=== PATIENT | female | born 1950 | race Caucasian/White ===

== ENCOUNTER 2017-01-12 05:54 | Day surgery (SDC) | payer OTHER ==
[~2017-01-12] VITALS: Ht 167.6 cm; Wt 91.8 kg
[~2017-01-12 05:54] MED LIST: ALBU18HF INH; ALBU8.5H2 INHALATION; ATEN25TA PO; CETI10CA PO; CHOL200047 PO; CITA10TA9 PO; LEVO25CA2 PO; MULT-1018 PO; NPR500T PO; OMEP20TA24 PO; PRAV40TA PO; TRAM50TA2 PO; VITA400C66 PO
[2017-01-12] MEDS ORDERED: Propofol 10,000 mCg/mL 20 mL Inj ONE ×2 (05:55)
[2017-01-12] MEDS ORDERED: Lidocaine 1%-Epi 1:100,000 10 mL Inj ONE (05:55)
[2017-01-12] MEDS ORDERED: CeFAZolin Inj 2 GM in IV Premix 1 EACH IV ONE (06:00)
[2017-01-12] MEDS: Lactated Ringer's 1,000 ML IV SCH ×2 (06:24→07:28)
[2017-01-12] MEDS ORDERED: BUPR75TA10 PO (06:32)
[2017-01-12 06:37] VITALS: BP 123/74; PULSE 68; RESP 17; O2SAT 96
[2017-01-12] MEDS ORDERED: Lidocaine PF 1% 30 mL Inj NERVEBLOCK ONE (07:34)
[2017-01-12] MEDS ORDERED: Lidocaine 2%-Epi 1:100,000 20 mL Inj NERVEBLOCK ONE (07:34)
--- NOTE | 2017-01-12 07:57 | PCM.HPANE ---
Patient Data Surgeon Admitting Provider: Attending Provider:Kika Ayon DPM Primary Care Physician:Trevor Other Provider:Conner Christian Anesthesia Reason for Visit Right Hallus Valgus / Bunion Ht/WT & BMI Height (Feet): 5 Height (Inches): 6 Weight (Kilograms): 91.8 Body Mass Index 32.00 Allergies Coded Allergies: lansoprazole (Verified Allergy, Severe, hives, 08/24/16) Past Anesthesia History Anesthesia History: Denies:: Anesthesia Reactions, Malignant Hyperthermia Diabetes History Hx Diabetes?: No Type of Diabetes: Type II Glycemic Control: Diet Controlled MRSA MRSA: No Medications Blood Thinner: Aspirin Hypertension Medication: Yes Home Meds Incl Beta Anali: Yes Date Beta Anali Taken: Jan 12, 2017 Time Beta Anali Taken: 514 Reported Medications Bupropion 75 Mg Rvwmcg90 Mg PO DAILY Ref 0 01/12/17 Cetirizine HCl (Zyrtec)10 Mg Zefafpe06 Mg PO HS PRN For Congestion #30 CAPSULE Ref 0 01/08/17 Vitamin E Acetate (Vitamin E)400 Unit Nacuxaf690 Unit PO DAILY 01/08/17 Cholecalciferol (Vitamin D3) (Vitamin D3)2,000 Unit Capsule6,000 Unit PO DAILY 01/08/17 Albuterol Sulfate (Ventolin HFA Inhaler)200 Puff/18 Gm Inhaler2 Puff INH Q4 PRN For Wheezing #1 INHALER Ref 0 01/08/17 Tramadol 50 Mg Tlbjyl27 Mg PO Q6H PRN For Pain Ref 0 01/08/17 Levothyroxine (Tirosint)25 Mcg Rgliwup89 Mcg PO DAILY 01/08/17 Multivitamin (Multi Vitamin Daily)1 Each Tablet1 Each PO DAILY 30 Days Ref 0 01/08/17 Albuterol HFA (Proair HFA)8.5 Gm Hfa.aer.ad2 Puffs INHALATION Q4H PRN For Shortness of Breath #1 INHALER 01/08/17 Omeprazole Magnesium (Prilosec Otc)20 Mg Tablet.dr20 Mg PO DAILY PRN For Indigestion #1 PKG Ref 0 01/08/17 Pravastatin 40 Mg Ifcsct66 Mg PO DAILY Ref 0 01/08/17 Naproxen 500 Mg Ulq324 Mg PO BID PRN For Pain Ref 0 01/08/17 Citalopram 10 Mg Mxpdqx22 Mg PO DAILY Ref 0 01/08/17 Atenolol 25 Mg Tlrkiy93.5 Mg PO DAILY #30 TABLET Ref 0 01/08/17 Discontinued Reported Medications Aspirin 81 Mg Xprqkh42 Mg PO DAILY Ref 0 08/24/16 Bupropion ER (Wellbutrin XL)150 Mg Tab.er.95s382 Mg PO DAILY Ref 0 08/24/16 Cetirizine HCl (Zyrtec)10 Mg Vnfzwyd87 Mg PO HS #30 CAPSULE Ref 0 08/24/16 oxyCODONE-Acetaminophen 5-325 mg 1 Each Tablet1-2 Tab PO Q6H PRN For Pain Ref 0 08/24/16 Vitamin E Acid Succinate (Vitamin E)400 Unit Oazfgu687 Unit PO DAILY 08/24/16 Cholecalciferol (Vitamin D3) (Vitamin D3)2,000 Unit Capsule6,000 Unit PO DAILY 08/24/16 Multivitamin (Multi Vitamin Daily)1 Each Tablet1 Each PO DAILY 30 Days Ref 0 08/24/16 Albuterol HFA (Proair HFA)8.5 Gm Hfa.aer.ad2 Puffs INHALATION Q4H PRN PRN #1 INHALER 08/24/16 Omeprazole 20 Mg Capsule.dr20 Mg PO DAILY Ref 0 08/24/16 Naproxen (Naprosyn)500 Mg Xzwcui949 Mg PO BID PRN For Pain Ref 0 08/24/16 Citalopram 10 Mg Vzsgns73 Mg PO DAILY 30 Days Ref 0 12/26/14 Pravastatin 10 Mg Cnkkzp06 Mg PO HS 12/26/14 Levothyroxine 25 Mcg Jfnpuy708 Mcg PO DAILY 12/26/14 Atenolol 25 Mg Kyrbmx85.5 Mg PO DAILY 12/26/14 History History of ENT Problems?: Yes HEENT History: 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) Denture Type: None Teeth Condition: Within Normal Limits Hx of Heart Problems?: Yes Cardiovascular History: Positive for:: Hypertension Denies:: Congestive Heart Failure Irregular Heartbeat Hx of Respiratory Problem?: Yes Respiratory History: Positive for:: Asthma Use of Inhalers / NEBS Denies:: COPD Emphysema Pneumonia Tuberculosis Use of C-PAP Machine Hx Neurologic Problems?: No Neurological History: Denies:: CVA Multiple Sclerosis Parkinson's Disease Seizures Hx of GI Problems?: Yes Hx of Problems?: No Genitourinary History: Denies:: Kidney Stones Urinary Tract Infection (past hx of) Female Hx: Denies:: Currently Skin History: Denies:: History Skin Disorders? Pressure Ulcers Hx Musculoskeletal Problems?: Yes Musculoskeletal History: Positive for:: Musculoskeletal Trauma (right bunion current admission problem ) Hx of Psycho/Social Problems?: Yes Psycho Social History: Positive for:: Anxiety Hx Depression Hx Surgeries?: Yes (left bunion, dental surgery) Hx Any Other Health Problems?: Yes Other History: Positive for:: Thyroid Disease Denies:: Cancer Endocrine Disease Hospitalization History Blood Transfusions: Positive for:: Blood Transfusions Denies:: Blood Transfuse Reaction Hx Diabetes: No Hx Alcohol Use: NoHx Substance Use: No (remote hx of MJ, none current) Smoking Status: Never Smoker Have You Smoked inLast 12 mo: No Stop/Bang S-Snoring: Do You Snore Loudly: No T-Tired: feel tired, fatigued: No O-Obsered: Observed not breath: No P-Blood Pressure: treated: Yes B- Body Mass Index > 35 kg/m2: No A- Age over 50: Yes N- Neck Large Circumference: No G- Gender Male: No ADAM Total Score: 2 ADAM Risk Assessment: Low Risk, <3 Yes Risk Assessment Category Category 1A: Patient has history of documented sleep apnea, and HAS NOT received any narcotic, sedative or anesthesia administration during this stay. Category 1B: Patient has history of documented sleep apnea, and HAS received any narcotic , sedative or anesthesia administration during this stay Category 2: Patient has SUSPECTED Obstructive Sleep Apnea, and HAS received any narcotic , sedative or anesthesia administration during this stay. Category 3: Patient has SUSPECTED Obstructive Sleep Apnea and HAS NOT received narcotic, sedative or anesthesia administration during this stay. Category 4: Outpatient in Procedural Areas with known sleep apnea or who screen positive for High Risk via the STOP/BANG questionnaire. Exam Exam Vital Signs Vital Signs Date Time Temp Pulse Resp B/P Pulse Ox O2 Delivery O2 Flow Rate FiO2 01/12/17 06:37 35.6 68 17 123/74 96 Room Air General Appearance: Alert, Oriented X3, Cooperative HEENT/AIRWAY: MP 2 Lungs: Clear to Auscultation Heart: Exam Unremarkable Meds/Labs/Diagnostics Admission Meds Current Medications Lactated Ringer's (Lr) 1,000 ml @ 120 mls/hr Q8H20M IV Last administered on t 06:24; Start 01/12/17 at 05:00; Stop 01/12/17 at 13:19 Plan Impression Patient chart reviewed, patient interviewed and anesthestic plan with risks, benefits, and alternatives discussed, and informed consent obtained. ASA Physical Status: ASA2 Mod Systemic Disease Anesthetic Plan: MAC Bene/Risks/Altern/Consents: Yes HP Complete Prior to Induction: Yes Nils Garrison DO Jan 12, 2017 07:27
[2017-01-12] MEDS ORDERED: Lactated Ringer's 500 ML IV PRN (07:59)
[2017-01-12] MEDS ORDERED: Lactated Ringer's 1,000 ML IV SCH (07:59)
[2017-01-12] MEDS ORDERED: fentaNYL-PF 50 mCg/mL 2 mL Inj IVPUSH PRN (08:00)
[2017-01-12] MEDS ORDERED: Dexamethasone 4 mg/mL Inj IVPUSH PRN (08:00)
[2017-01-12] MEDS ORDERED: Ondansetron 2 mg/mL 2 mL Inj IVPUSH PRN (08:00)
[2017-01-12] MEDS ORDERED: Labetalol 5 mg/mL 4 mL Inj IV PRN (08:00)
[2017-01-12] MEDS ORDERED: Phenylephrine 10,000 mCg/mL Inj IVPUSH PRN (08:00)
[2017-01-12] MEDS ORDERED: HYDROmorphone 1 mg/mL Inj IVPUSH PRN (08:00)
[2017-01-12] MEDS ORDERED: MetoCLOpramide 5 mg/mL 2 mL Inj IVPUSH PRN (08:00)
[2017-01-12] MEDS ORDERED: EPHEDrine Sulfate 50 mg/mL Inj IVPUSH PRN (08:00)
[2017-01-12] MEDS ORDERED: Atropine 0.4 mg/mL Inj IVPUSH PRN (08:00)
[2017-01-12 08:51] VITALS: BP 109/74; PULSE 83; RESP 15; O2SAT 97
[2017-01-12] MEDS ORDERED: oxyCODONE-Acetamin 5-325 mg Tablet PO PRN (08:55)
--- NOTE | 2017-01-12 09:00 | PCM.PODPO ---
Podiatry Operative Report Date of Service: Jan 12, 2017 Date of Service Jan 12, 2017 Pre Operative Diagnosis Right foot hallux valgus, bunion deformity Post Operative Diagnosis Right foot hallux valgus, bunion deformity Procedure Right bunionectomy with Buddy distal first metatarsal osteotomy Surgeon Surgeon: Kika Ayon DPM Assistants: None Indication for Procedure Pain and deformity, thick calluses interfering with ambulation. Findings 20% cartilage degeneration in 1st MTP joint. Abduction residual after osteotomy , not amenable to Todd osteotomy due to bone stock. Details of Procedure The patient was identified in the preoperative holding area. She was brought back to the operating room and placed on the operating table in supine position. The timeout protocol was completed and the patient's name and site of surgery confirmed. IV sedation was initiated and the patient's right foot anesthetized in a Colby block. The right foot was prepped and draped in usual aseptic manner. Incisional lidocaine with epinephrine was used for localized hemostasis and no tourniquet was necessary. The incision was made on the dorsomedial aspect of the first metatarsophalangeal joint. It was deepened bluntly to expose the underlying metatarsophalangeal joint capsule. The skin was undermined laterally to this intermetatarsal space. The adductor hallucis tendon was released, the proximal aspect of the fibular suspensory ligaments was released. Attention was then directed to the dorsomedial aspect of the capsule where a linear incision was made into the first metatarsophalangeal joint. The capsule was reflected off of the dorsal and medial aspect of the first metatarsal head. The bunion eminence was resected with a bone saw. A V- shaped osteotomy was performed through the head and neck of the first metatarsal with the apex in the center of the metatarsal head. The dorsal arm of the osteotomy was longer. The metatarsal head was translated laterally and plantarly. Care was taken not to shorten the first metatarsal. The medial overhang of bone was resected. Temporary fixation was performed with the K wire. A single 2.7 mm lag screw was inserted across the osteotomy from dorsal distal to plantar proximal. The fixation was found to be stable. Irrigation was performed using normal saline. A medial capsulorrhaphy was done to decrease the abduction of the hallux. I used 3-0 Vicryl to approximate the capsulorrhaphy and closed the capsule. I used 4-0 Vicryl to approximate the subcutaneous soft tissue. I used 4-0 Prolene to close the skin in a subcuticular stitch with 1 central bridge. Dressing consisted of Steri-Strips, Vaughn's Silk, normal saline moistened 4 x 4 gauze, and Kerlix, with slightly compressed Coban. The patient's foot was placed in a postoperative shoe. She was weaned off of IV anesthesia and taken today surgery with vital signs stable and neurovascular status to the right foot intact. Grafts, Implants: Implants-See Implant Record Complications There were no periprocedural complications identified. Condition Stable Anesthetic Administered: MAC Drains: None Catheters: None Output, Estimated Blood Loss: 10 (ml) Blood Admin during surgery: No Surgical Cast or Splint: Post-op Boot Surgical Specimen Removed: No Specimen sent to Pathology: No Post Operative Plan Weightbearing as tolerated in a postoperative shoe. Discharged to home with by mouth pain medication already prescribed. Postoperative visit next week in the office. Until then, the patient is to keep the dressing clean, dry, intact. Kika Ayon DPM Jan 12, 2017 09:00
[2017-01-12 09:38] VITALS: BP 107/64; PULSE 68; RESP 16; O2SAT 96
--- NOTE | 2017-01-12 10:55 | PCM.ANEP1 ---
Post Anesthesia Phase 1 PACU Phase 1 Assessment Date of Service: Jan 12, 2017 Vital Signs Vital Signs Date Time Temp Pulse Resp B/P Pulse Ox O2 Delivery O2 Flow Rate FiO2 01/12/17 09:38 68 16 107/64 96 Room Air 01/12/17 08:51 83 15 109/74 97 Room Air 01/12/17 06:37 35.6 68 17 123/74 96 Room Air Anesthetic Administered: MAC Level of Alertness: Awake, talking GIBSON's with Equal Strength: Yes Pain: No Nausea or Vomiting: No Cardiovascular Function and Hy: Yes Oxygen Delivery: Room Air Lungs: Clear to Auscultation Dermatome Level: Full Sensation Complications: No Follow up Care: No Patient Instructions Provided: Yes Nils Garrison DO Jan 12, 2017 10:55
== END 2017-01-12 23:59 | disposition home or self-care (01) ==
LOC: SAS 05:54
PROVIDERS: ATTEND Podiatrist
DX: M20.11 Hallux valgus (acquired), right foot (principal); M79.671 Pain in right foot; I10 Essential (primary) hypertension; E11.9 Type 2 diabetes mellitus without complications; J45.909 Unspecified asthma, uncomplicated; F41.9 Anxiety disorder, unspecified; F32.9 Major depressive disorder, single episode, unspecified; Z79.82 Long term (current) use of aspirin
CPT/HCPCS: 28296; C1713; J0690; J7120